=== PATIENT | male | born 1935 | race Caucasian/White ===

== ENCOUNTER → 2016-11-01 | Outpatient (CLI) | payer MEDICARE, BC ==
[~2016-11-01] MED LIST: ACETAMINOPHEN650 M3 PO; ASPIRIN; ASPIRIN PO; BIAXIN; CALAN; CALAN-SR CAPL180 MG PO; CARDURA; CARTIA XT240 MG PO; CELEXA PO; CLARITIN D PO; CORDARONE200 M1 PO; DUONEB 2.5-0.5 M3 ML INH; FLOMAX0.4 M1 PO; LANOXIN; LANOXIN PO; LEVAQUIN; PREDNISONE; PREDNISONE PO; PROTONIX PO; ROBITUSSIN-DM120 ML; ZANTAC
--- NOTE | ~2016-11-01 | CT4 ---
[facility] A Service of [facility] RADIOLOGY TEXT RESULTS PATIENT: RENETTA RON SR [facility] 35 UNIT #: [id number] AGE: [address]: Mauri Weaver MD SEX: M ORDER DR: [id number] [facility] [address] [place], [place] [address] [id number] O MR#: [id number] [facility] #: [id number] NAME: RENETTA RON : 1935 SEX: M STUDY DATE/TIME: 11/01/2016 10:01 [facility] RO[facility]: STUDY DESCRIPTION: CT Abd and Pelv Wo Cont Attending Physician: Mauri Weaver M.D. Referring Physician: Mauri Weaver M.D. Ordering Physician: Mauri Weaver M.D. Primary Care Physician: Mauri Weaver M.D. MEDICAL IMAGING REPORT This report is preliminary unless electronic signature is present EXAM CT scan of the abdomen and pelvis with contrast 11/01/2016 HISTORY Right lower quadrant abdominal pain for [address] was performed through the abdomen and pelvis following oral contrast administration only as per clinician request. This CT exam was performed with one or more of the following radiation dose reduction techniques: automatic exposure control, adjustment of mA and/or kV according to patient size, and iterative reconstruction. FINDINGS Abdomen exam is limited by the lack of intravenous contrast. The liver, spleen, pancreas and adrenal glands and kidneys are normal. The gallbladder contains multiple gallstones. There is no intra- or extrahepatic biliary ductal dilatation. PELVIS: There is a small periumbilical hernia containing only fat. There is evidence of prior ventral hernia repair with mesh graft in place. There is colonic diverticulosis without evidence of diverticulitis. The gut is otherwise unremarkable. The appendix appears normal. There is no free fluid in the abdomen or pelvis. Degenerative change and scoliosis of the thoracolumbar spine. Images of the lung bases demonstrate emphysematous and fibrotic changes. IMPRESSION 1. Exam is limited by the lack of intravenous contrast. 2. Cholelithiasis. 3. Small periumbilical hernia containing only fat. Prior ventral hernia STS. [facility] A Service of [facility] RADIOLOGY TEXT RESULTS PATIENT: RENETTA RON SR LOCATION: [facility] : 35 UNIT #: [id number] AGE: [address]: Mauri Weaver MD SEX: M ORDER DR: repair with mesh graft in place. 4. Diverticulosis. No evidence of diverticulitis. 5. Normal appendix. 6. Emphysematous and fibrotic changes at the lung bases. Dictated by... Sampson Chaudhary M.D. THIS IS AN ELECTRONICALLY VERIFIED REPORT Sampson Chaudhary M.D. at 11/04/2016 7:21 AM BOUCHRA/vaishali TD: 11/01/2016 20:52 JOB #: [id number] MEDICAL IMAGING REPORT Page 1 of 1 COPY
== END | disposition home or self-care (01) ==
LOC: CCAT 08:30
DX: R10.31 Right lower quadrant pain (principal); K80.20 Calculus of gallbladder without cholecystitis without obstruction; K42.9 Umbilical hernia without obstruction or gangrene; K57.30 Diverticulosis of large intestine without perforation or abscess without bleeding; J43.9 Emphysema, unspecified; J84.10 Pulmonary fibrosis, unspecified
CPT/HCPCS: 74176

== ENCOUNTER → 2016-12-18 | Outpatient (CLI) | payer MEDICARE, BC ==
--- NOTE | ~2016-12-18 | HM ---
Unit #: [id number] #: [id number] Patient: RENETTA RON SR [id number] [address] [address] [id number] O MR#: [id number] NAME: RENETTA RON SR : 1935 SEX: M STUDY DATE/TIME: 12/17/2016 UNIT: [facility] ROOM: STUDY DESCRIPTION: holter Attending Physician: Enrico Lara M.D. Referring Physician: Enrico Lara M.D. Primary Care Physician: Mauri Weaver M.D. CARDIOLOGY REPORT EXAM Holter Monitor DATE APPLIED 12/18/2016 DATE SCANNED 12/23/[address] Lara READ BY Tamiko Pelaez. 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 Basic rhythm is normal sinus rhythm. Total beats 135,992. Average heart rate 94 per minute. Heart rate varies from 56 per minute at 6:45 to 188 per minute at 11:07. 2. 2777 isolated PVCs and 169 ventricular couplets noted. Episodes of bigeminy noted. 24 runs of ventricular tachycardia noted. Longest run contained 5 beats. 3. 15,964 isolated PACs and 2331 atrial couplets noted. Episodes of 1087 runs of supraventricular tachycardia noted. Longest run contains 15 beats. 4. No high grade AV blocks noted. 5. No diary with the symptoms available. Dictated by... Gabby Roblero/fatimah TD: 12/24/2016 16:28 JOB #: [id number] Unit #: [id number] #: [id number] Patient: RENETTA RON SR CARDIOLOGY REPORT Page 1 of 1 X Maye Pelaez MD HOLTER MONITOR REPORT
== END | disposition home or self-care (01) ==
LOC: CEKG 13:07
DX: J43.9 Emphysema, unspecified (principal)
CPT/HCPCS: 93225; 93226